=== PATIENT | female | born 1960 | race Caucasian/White ===

== ENCOUNTER 2017-06-22 21:40 | Inpatient (IN) | payer OTHER ==
[~2017-06-22] VITALS: Ht 162.6 cm; Wt 94.0 kg
[2017-06-22 22:30] LABS: BASOPHIL % 0.4 % (0-2); PLATELET COUNT 287 x10^3mcL (130-400); RED CELL DISTRIBUTION WIDTH 14.5 % (11.5-14.5)
[2017-06-22 22:40] LABS: ALBUMIN 4.8 g/dL (3.4-5.0); BILIRUBIN TOTAL 0.7 mg/dL (0.20-1.00); CALCIUM 10.3 mg/dL (8.5-10.1); CARBON DIOXIDE 22.3 mmol/L (21-32); CREATININE SERUM 1.3 mg/dL (0.6-1.0)
[2017-06-22 22:55] LABS: CK-MB 1.1 ng/mL (0-3.6)
[2017-06-22 22:56] LABS: POTASSIUM SERUM 2.3 mmol/L (3.5-5.1)
[2017-06-22] MEDS ORDERED: LOVASTATIN20 MG (23:41)
[2017-06-22] MEDS ORDERED: METFORMIN HCL850 MG PO (23:42)
[2017-06-22] MEDS ORDERED: ZES10 PO (23:43)
[2017-06-23] VITALS (11 sets, daily range): BP systolic 128–8168; BP diastolic 59–106
[2017-06-23 00:33] LABS: microscopic required? YES; urine erythrocyte TRACE (NEGATIVE)
[2017-06-23 01:46] LABS: T3 TOTAL 1.14 ng/mL
[2017-06-23 01:50] LABS: MAGNESIUM 1.6 mg/dL (1.8-2.4); PHOSPHOROUS 3.4 mg/dL (2.5-4.9)
[2017-06-23 02:38] LABS: FREE T4 1.09 ng/dL (0.76-1.46); FREE THYROXINE INDEX 3.7 ug/dL (1.4-4.5)
[2017-06-23 06:30] LABS: PLATELET COUNT 194 x10^3mcL (130-400)
[2017-06-23 06:39] LABS: BASOPHIL % 0 % (0-2); RED CELL DISTRIBUTION WIDTH 14.6 % (11.5-14.5)
[2017-06-23 06:48] LABS: CALCIUM 7.7 mg/dL (8.5-10.1); CARBON DIOXIDE 20.7 mmol/L (21-32); CHLORIDE SERUM 105 mmol/L (98-107); CREATININE SERUM 0.9 mg/dL (0.6-1.0); GFR1 > 60 mL/min; GLUCOSE SERUM 284 mg/dL (74-106); SODIUM SERUM 139 mmol/L (136-145)
[2017-06-23 06:57] LABS: CHOLESTEROL/HDL RATIO 2.7
[2017-06-24] VITALS (8 sets, daily range): BP systolic 116–163; BP diastolic 55–85
[2017-06-24 06:32] LABS: PLATELET COUNT 178 x10^3mcL (130-400)
[2017-06-24 06:35] LABS: RED CELL DISTRIBUTION WIDTH 15.2 % (11.5-14.5)
[2017-06-24 06:56] LABS: CALCIUM 7.1 mg/dL (8.5-10.1); CARBON DIOXIDE 25.5 mmol/L (21-32); CHLORIDE SERUM 107 mmol/L (98-107); CREATININE SERUM 0.9 mg/dL (0.6-1.0); GFR1 > 60 mL/min; GLUCOSE SERUM 267 mg/dL (74-106); MAGNESIUM 1.7 mg/dL (1.8-2.4); PHOSPHOROUS 2.1 mg/dL (2.5-4.9); POTASSIUM SERUM 3.3 mmol/L (3.5-5.1); SODIUM SERUM 140 mmol/L (136-145)
[2017-06-24 08:01] LABS: ATYPICAL LYMPH 4 %; BAND NEUTROPHIL 25 % (0-10); BASOPHIL 0 % (0-2); MONOCYTE 2 % (0-7); SEGMENTED NEUTROPHILS 61 % (37-75)
[2017-06-24 08:03] LABS: PLATELET MORPHOLOGY PLATELETS DECREASED; rbc morphology (normal/abnorm) ABNORMAL (NORMAL)
[2017-06-24 08:54] LABS: AMYLASE 960 U/L (25-115)
[2017-06-24 10:05] LABS: LIPASE 9158 IU/L (73-393)
[2017-06-25] VITALS (7 sets, daily range): BP systolic 128–161; BP diastolic 66–87
[2017-06-25 07:09] LABS: PLATELET COUNT 148 x10^3mcL (130-400)
[2017-06-25 07:20] LABS: CALCIUM 7.2 mg/dL (8.5-10.1); CARBON DIOXIDE 26.7 mmol/L (21-32); CHLORIDE SERUM 109 mmol/L (98-107); CREATININE SERUM 0.7 mg/dL (0.6-1.0); GFR1 > 60 mL/min; GLUCOSE SERUM 219 mg/dL (74-106); MAGNESIUM 2.3 mg/dL (1.8-2.4); SODIUM SERUM 143 mmol/L (136-145)
[2017-06-25 07:22] LABS: AMYLASE 739 U/L (25-115)
[2017-06-25 07:25] LABS: POTASSIUM SERUM 2.8 mmol/L (3.5-5.1); RED CELL DISTRIBUTION WIDTH 15.6 % (11.5-14.5)
[2017-06-25 08:09] LABS: LIPASE 4007 IU/L (73-393)
[2017-06-25 09:57] LABS: ATYPICAL LYMPH 2 %; BAND NEUTROPHIL 15 % (0-10); MONOCYTE 4 % (0-7); SEGMENTED NEUTROPHILS 65 % (37-75)
[2017-06-25 09:59] LABS: PLATELET MORPHOLOGY LARGE PLATELET SEEN; rbc morphology (normal/abnorm) ABNORMAL (NORMAL); tear drop cell (dacryocyte) 1+
[2017-06-26 05:33] VITALS: BP 137/67
[2017-06-26 07:10] VITALS: BP 146/68
[2017-06-26 07:20] LABS: BASOPHIL % 0.3 % (0-2); PLATELET COUNT 156 x10^3mcL (130-400); RED CELL DISTRIBUTION WIDTH 15.6 % (11.5-14.5)
[2017-06-26 07:37] LABS: CARBON DIOXIDE 25.7 mmol/L (21-32); CHLORIDE SERUM 108 mmol/L (98-107); CREATININE SERUM 0.6 mg/dL (0.6-1.0); GFR1 > 60 mL/min; GLUCOSE SERUM 175 mg/dL (74-106); LIPASE 528 IU/L (73-393); MAGNESIUM 2.1 mg/dL (1.8-2.4); PHOSPHOROUS 1.2 mg/dL (2.5-4.9); SODIUM SERUM 141 mmol/L (136-145)
[2017-06-26 07:41] LABS: AMYLASE 193 U/L (25-115); POTASSIUM SERUM 2.6 mmol/L (3.5-5.1)
[2017-06-26 09:44] VITALS: BP 153/66
[2017-06-26 13:23] VITALS: BP 146/68
[2017-06-26 17:05] VITALS: BP 139/63
[2017-06-26 19:26] LABS: CALCIUM 7.4 mg/dL (8.5-10.1); CARBON DIOXIDE 28.1 mmol/L (21-32); CHLORIDE SERUM 101 mmol/L (98-107); CREATININE SERUM 0.8 mg/dL (0.6-1.0); GFR1 > 60 mL/min; GLUCOSE SERUM 274 mg/dL (74-106); SODIUM SERUM 137 mmol/L (136-145)
[2017-06-26 19:51] LABS: POTASSIUM SERUM 2.6 mmol/L (3.5-5.1)
[2017-06-26 21:32] VITALS: BP 140/61
[2017-06-27 05:40] VITALS: BP 137/71
[2017-06-27 07:05] LABS: AMYLASE 81 U/L (25-115); BASOPHIL % 0.2 % (0-2); CALCIUM 7.5 mg/dL (8.5-10.1); CARBON DIOXIDE 28.9 mmol/L (21-32); CHLORIDE SERUM 101 mmol/L (98-107); CREATININE SERUM 0.7 mg/dL (0.6-1.0); GFR1 > 60 mL/min; GLUCOSE SERUM 171 mg/dL (74-106); LIPASE 275 IU/L (73-393); MAGNESIUM 1.6 mg/dL (1.8-2.4); PHOSPHOROUS 1.6 mg/dL (2.5-4.9); PLATELET COUNT 176 x10^3mcL (130-400); SODIUM SERUM 139 mmol/L (136-145)
[2017-06-27 07:06] LABS: POTASSIUM SERUM 2.7 mmol/L (3.5-5.1)
[2017-06-27 09:28] VITALS: BP 151/71
[2017-06-27 13:22] VITALS: BP 140/69
[2017-06-27 16:48] VITALS: BP 149/75
[2017-06-27 20:30] LABS: CALCIUM 7.6 mg/dL (8.5-10.1); CHLORIDE SERUM 101 mmol/L (98-107); CREATININE SERUM 0.6 mg/dL (0.6-1.0); GFR1 > 60 mL/min; GLUCOSE SERUM 209 mg/dL (74-106); SODIUM SERUM 135 mmol/L (136-145)
[2017-06-27 20:36] LABS: POTASSIUM SERUM 3.5 mmol/L (3.5-5.1)
[2017-06-27 22:03] VITALS: BP 168/89
[2017-06-27 23:45] VITALS: BP 123/57
[2017-06-28 05:17] VITALS: BP 147/72
[2017-06-28 06:58] LABS: PLATELET COUNT 185 x10^3mcL (130-400)
[2017-06-28 07:02] LABS: RED CELL DISTRIBUTION WIDTH 15.4 % (11.5-14.5)
[2017-06-28 07:18] LABS: CALCIUM 7.9 mg/dL (8.5-10.1); CARBON DIOXIDE 24.2 mmol/L (21-32); CHLORIDE SERUM 100 mmol/L (98-107); CREATININE SERUM 0.6 mg/dL (0.6-1.0); GFR1 > 60 mL/min; GLUCOSE SERUM 171 mg/dL (74-106); MAGNESIUM 1.6 mg/dL (1.8-2.4); PHOSPHOROUS 1.9 mg/dL (2.5-4.9); SODIUM SERUM 135 mmol/L (136-145)
[2017-06-28 07:29] LABS: POTASSIUM SERUM 2.9 mmol/L (3.5-5.1)
[2017-06-28 09:10] LABS: BAND NEUTROPHIL 12 % (0-10); BASOPHIL 0 % (0-2); MONOCYTE 6 % (0-7); SEGMENTED NEUTROPHILS 70 % (37-75)
[2017-06-28 09:12] LABS: rbc morphology (normal/abnorm) ABNORMAL (NORMAL); tear drop cell (dacryocyte) 1+
[2017-06-28 09:13] LABS: PLATELET MORPHOLOGY GIANT PLATELET SEEN
[2017-06-28 10:27] VITALS: BP 150/76
[2017-06-28] MEDS ORDERED: APAP/HYDROCODON1 T13 PO (11:20)
[2017-06-28] MEDS ORDERED: COL100 PO (11:21)
[2017-06-28] MEDS ORDERED: MAG PO (11:23)
[2017-06-28] MEDS ORDERED: SYN125 PO (11:23)
[2017-06-28] MEDS ORDERED: KLOR-CON M2020 MEQ PO (11:24)
[2017-06-28] MEDS ORDERED: OSCD PO (11:24)
[2017-06-28] MEDS ORDERED: ZES20 PO (11:25)
[2017-06-28 13:45] VITALS: BP 140/80
[2017-06-28 16:07] VITALS: BP 140/80
== END 2017-06-28 17:30 | disposition home or self-care (01) | DRG 871 ==
LOC: ED 21:40 → DU 06-23 00:28
PROVIDERS: Emergency Medicine; Family Medicine; ADMIT Family Medicine
DX: A41.9 Sepsis, unspecified organism (principal); K85.90 Acute pancreatitis without necrosis or infection, unspecified; N17.0 Acute kidney failure with tubular necrosis; J18.9 Pneumonia, unspecified organism; K56.609 Unspecified intestinal obstruction, unspecified as to partial versus complete obstruction; E11.65 Type 2 diabetes mellitus with hyperglycemia; E87.6 Hypokalemia; E83.42 Hypomagnesemia; I10 Essential (primary) hypertension; E78.5 Hyperlipidemia, unspecified; E02 Subclinical iodine-deficiency hypothyroidism; K76.0 Fatty (change of) liver, not elsewhere classified; E83.39 Other disorders of phosphorus metabolism; E66.01 Morbid (severe) obesity due to excess calories; Z79.84 Long term (current) use of oral hypoglycemic drugs; Z90.710 Acquired absence of both cervix and uterus; Z90.49 Acquired absence of other specified parts of digestive tract; Z79.899 Other long term (current) drug therapy
CPT/HCPCS: 36600; 82962; 83880; 84439; 94150; C1769; C1887; C1894; C9113; J1170; J1644; J1815; J1885; J1940; J2270; J2405; J2543; J3010; J3475; J3480; J3490; J7030; J7042; J7050; J7620; Q0092; Q0163; Q9966; Q9967